=== PATIENT | male | born 1960 | race Two or more races ===

== ENCOUNTER 2022-02-24 20:10 | Emergency (ER) | payer OTHER ==
[~2022-02-24] VITALS: Ht 170.2 cm; Wt 72.1 kg
[2022-02-24] MEDS ORDERED: DORZOLAMIDE-TIM10 ML OP (20:39)
[2022-02-25] MEDS ORDERED: MEDROLPACK PO (01:03)
[2022-02-25] MEDS ORDERED: SINUS RINSE ST1 EACH NASAL (01:03)
== END 2022-02-25 01:24 | disposition home or self-care (01) ==
LOC: ER 20:10
DX: U07.1 COVID-19 (principal); J06.9 Acute upper respiratory infection, unspecified